=== PATIENT | male | born 2000 | race Caucasian/White ===

== ENCOUNTER 2024-03-20 08:55 | Outpatient (AMB) | payer OTHER, SELFPAY ==
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
[2024-03-20 09:09] VITALS: BP 108/66; PULSE 95; RESP 14; O2SAT 98; BMI 48.8
== END 2024-03-20 10:03 | disposition home or self-care (01) ==
PROVIDERS: Visit Provider Physician Assistant
DX: Z00.00 Encounter for general adult medical examination without abnormal findings (principal); F32.5 Major depressive disorder, single episode, in full remission; E66.01 Morbid (severe) obesity due to excess calories; Z68.42 Body mass index [BMI] 45.0-49.9, adult; F41.1 Generalized anxiety disorder; E04.9 Nontoxic goiter, unspecified; J45.20 Mild intermittent asthma, uncomplicated

== ENCOUNTER → 2024-03-20 08:55 | Outpatient (BNVA) | payer OTHER, SELFPAY | PROVIDERS: Visit Provider Physician Assistant | DX: Z00.00 Encounter for general adult medical examination without abnormal findings (principal); F32.5 Major depressive disorder, single episode, in full remission; F41.1 Generalized anxiety disorder; E66.01 Morbid (severe) obesity due to excess calories; E04.9 Nontoxic goiter, unspecified; J45.20 Mild intermittent asthma, uncomplicated | CPT/HCPCS: 96127; 99385 ==

== ENCOUNTER 2024-03-20 10:10 | Outpatient (REF) | payer OTHER, SELFPAY ==
[2024-03-20 11:36] LABS: MANUAL DIFF FLAG NO
[2024-03-20 11:46] LABS: Basophils Percent Auto 0.3 % (0-2); Eosinophils Absolute Auto 0.2 X10*3/uL (0.0-0.4); Eosinophils Percent Auto 1.5 % (0-4); Hematocrit 38.9 % (42.0-52.0); Hemoglobin 13.1 g/dl (14.0-18.0); Imm Gran Abs Auto 0.04 X10*3/uL (0.00-0.03); Imm Gran Pct Auto 0.3 % (0.0-0.4); Lymphocytes Absolute Auto 3.5 X10*3/uL (1.2-4.9); Mean Corpuscular HGB Conc 33.7 g/dl (31.0-36.0); Mean Corpuscular Hemoglobin 29.9 pg (27.0-33.0); Mean Corpuscular Volume 88.8 fL (80.0-98.0); Mean Platelet Volume 11.5 fL (9.4-12.4); Monocytes Absolute Auto 0.7 X10*3/uL (0.1-1.2); Neutrophils Absolute Auto 8.6 x10*3/uL (2.0-8.3); Neutrophils Percent Auto 65.9 % (45-73); Platelet Count 308 X10*3/uL (160-400); Red Blood Count 4.38 X10*6/uL (4.60-5.80); White Blood Count 13.1 X10*3/uL (4.8-10.8)
[2024-03-20 11:50] LABS: Estimated Average Glucose 100 mg/dL; Hemoglobin A1C 112.9961 umol/L; Hemoglobin A1c % 5.1 % (<6.0); Total Hemoglobin (HGBA1C) 3525.6241 umol/L
[2024-03-20 12:33] LABS: Alanine Aminotransferase 36 U/L (0-40); Albumin Level 4.7 g/dL (3.5-5.0); Alkaline Phosphatase 67 U/L (39-117); Anion Gap 13 (12-20); Aspartate Amino Transferase 21 U/L (5-37); Bilirubin Total 0.6 mg/dL (0.0-1.0); Blood Urea Nitrogen 13 mg/dL (9-16); Calcium 9.5 mg/dL (8.4-10.2); Carbon Dioxide 21 mmol/L (22-29); Chloride 106 mmol/L (96-108); Cholesterol 176 mg/dL (<200); Estimated Glomerular Filt Rate > 60; Glucose Fasting 93 mg/dL (60-99); HDL Cholesterol 34 mg/dL (>40); HIV AB/AG Nonreactive (Nonreactive); HIV Num 1 0.06 S/CO (0.00-0.99); Iron 86 mcg/dL (45-160); LDL Cholesterol Calculated 109 mg/dL (<100); Percent Iron Saturation 27 % (15-50); Potassium 3.6 mmol/L (3.3-5.1); Sodium 136 mmol/L (135-145); Total Iron Binding Capacity 316 mcg/dL (228-428); Total Protein 8.1 g/dL (6.5-8.0); Triglycerides 167 mg/dL (<150); Unsaturated Iron Binding 230 ug/dL; ~HepC Num1 0.07 S/CO (0.00-0.79); ~Hepatitis C Antibody Nonreactive (Nonreactive)
[2024-03-20 12:34] LABS: Syphilis Screen Nonreactive (Nonreactive)
[2024-03-20 12:37] LABS: Ferritin 79 ng/mL (20-250); TSH reflex Free T4 1.78 uIU/mL (0.32-4.0)
[2024-03-20 12:47] LABS: Folate 11.6 ng/mL (> or = 4.0); Vitamin B12 434 pg/mL (200-900)
[2024-03-20 14:53] LABS: CT PCR NOT DETECTED (Not Detect.); NG PCR NOT DETECTED (Not Detect.)
== END 2024-03-20 10:11 | disposition home or self-care (01) ==
LOC: HO.WFDLDS 10:10
PROVIDERS: Physician Assistant; Visit Provider Physician Assistant
DX: F32.5 Major depressive disorder, single episode, in full remission (principal); F41.1 Generalized anxiety disorder; E66.01 Morbid (severe) obesity due to excess calories; Z20.2 Contact with and (suspected) exposure to infections with a predominantly sexual mode of transmission; Z91.011 Allergy to milk products; Z91.012 Allergy to eggs
CPT/HCPCS: 36415; 80053; 80061; 82607; 82728; 82746; 83036; 83540; 84443; 85025; 86003; 86780; 86803; 87389; 87491; 87591

== ENCOUNTER 2024-04-04 09:01 | Outpatient (AMB) | payer OTHER, SELFPAY ==
--- NOTE | 2024-04-04 09:24 | MHC.PC.OV ---
Vital Signs 04/04/24 09:25 Height 5 ft 9.69 in Weight 346 lb 8 oz BMI 50.2 BP 119/75 Blood Pressure Location Rt brachial Position Right Lateral Pulse 102 H Pulse Source Pulse Oximeter Pulse Oximetry (%) 99 Oxygen Delivery Method Room Air Intake Visit Reasons: labs, med discussion Intake Note: Follow up discuss weight loss medication and lab results. 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 Psych: He reports persistent symptoms of major depressive disorder and generalized anxiety disorder, for which he is currently managed by a psychiatrist. The patient is on fluoxetine and trazodone but mentions difficulty in remembering to take them consistently. Massage Operator: He experiences heavy menstrual bleeding described as menorrhagia, with periods being particularly heavy during the initial days and requiring tampon changes every one to two hours. The cycles are described as regular despite their intensity. Last labs that show mild anemia. Going to follow up with Massage Operator. Musculoskeletal: Patient did go to the ER on 03/29 with complaints acute right-sided low back pain. Symptoms started about 4 days prior to ER evaluation. X-ray was obtained and did show mild L4-L5 disc space narrowing, otherwise normal. Patient was provided Flexeril, ketorolac and lidocaine patches. Back is feeling better. States that he would like a refill of the cyclobenzaprine just in case he throws his back out again. General: He has been trying decreased portions, calorie restricting for the last 6 months without big changes in weight. He tries exercising but it is difficult because of his weight. He has tried an over the counter fat burner without improvement. He did meet with a freelance makeup artist. He has tried low carb, my fitness pal, and atkins and intermittent fasting. He states he has only lost minimal weight with these changes and feels like he continues to gain. PFSH Family History (Updated 03/20/24 @ 09:09 by Betzy Jacobson CMA) Mother Diabetes Father Diabetes Other FH: mental illness Substance abuse Social History (Updated 03/20/24 @ 09:12 by Betzy Jacobson CMA) Housing: House Alcohol intake: current Patient Tobacco Use Status: Never used Tobacco e-Cigarette/Vaping Use: Never Used Second Hand Smoke Exposure: No service: No Current occupational status: employed and unemployed Cognitive needs: No Hearing needs: No Vision needs: Yes (glasses) Questionnaire Thrive Questionnaire Date Thrive assessed: 03/13/24 I am a: Patient What is your living situation today?: I have a place to live, but I am worried about losing it in the future Within the past 12 months, did the food you bought not last and you didn't have the money to get more?: I choose not to answer this question Within the past 12 months, did you worry whether your food would run out before you got money to buy more?: I choose not to answer this question Do you have trouble paying for medicines?: I choose not to answer this question Do you have trouble getting transportation to medical appointments?: I choose not to answer this question Do you have trouble paying your heating and electricity bill?: I choose not to answer this question Do you have trouble taking care of your child, family member or friend?: No Do you have trouble with day-to-day activities such as bathing, preparing meals, shopping, managing finances, etc.?: Yes Are you currently unemployed and looking for a job?: Yes Are you interested in more education?: Yes THRIVE Score: 1 CHETNA-7 AMB Questionnaire CHETNA-7 Date CHETNA - 7 assessed: 03/20/24 Source: Developed by Drs. Tony Bennett, Poly Tran, Ernesto Monte and colleagues, with an educational ana from [employer]. Physical exam (Primary Care) Vital Signs: Last Vital Signs Pulse 102 H 04/04/24 09:25 BP 119/75 04/04/24 09:25 Pulse Ox 99 04/04/24 09:25 Oxygen Delivery Method Room Air 04/04/24 09:25 BMI result Body Mass Index 50.2 Tobacco/Smoking Status: Tobacco use Status Tobacco use date assessed 03/20/24 04/04/24 09:29 Patient Tobacco Use Status Never used Tobacco 04/04/24 09:29 e-Cigarette/Vaping Use Never Used 04/04/24 09:29 Thrive Assessment: Date of Thrive Assessment Date Thrive assessed 03/13/24 04/04/24 09:29 Const Orientation/consciousness: patient oriented x3 HENMT Ears: hearing grossly normal bilaterally Neck Thyroid: Thyroid normal Lymphatic: no lymphadenopathy noted Resp Auscultation: clear to auscultation bilaterally Cardio Rate: regular rate Rhythm: regular rhythm Heart sounds: S1 normal heart sound present and S2 normal heart sound present GI Inspection: Yes normal to inspection Palpation (GI): Soft to palpation and Other GI palpation findings present (nontender, no cva tenderness) Auscultation: normoactive bowel sounds Rectal Exam - Male: Yes deferred Skin General skin exam: no rashes or lesions noted Neuro General: patient oriented x3, gait normal and no focal motor deficits Results Reviewed Results Reviewed: Laboratory Tests 03/20/24 10:22 WBC 13.1 H RBC 4.38 L Hgb 13.1 L Hct 38.9 L Plt Count 308 Sodium 136 Potassium 3.6 Chloride 106 Creatinine 0.70 Estimated GFR > 60 Hemoglobin A1c % 5.1 AST 21 ALT 36 LDL Cholesterol, Calc 109 H TSH 1.78 Coding Level of Care Code Est Pt Level 4 (28888) Complex EM visit Add On G2211 Diagnoses Severe obesity (BMI >= 40) E66.01 Low back pain M54.50 Major depression in full remission F32.5 Assessment & Plan Assessment & Plan (1) Severe obesity (BMI >= 40): Code(s): E66.01 - Morbid (severe) obesity due to excess calories Category: Medical Plan: Reviewed last labs. Discussed that patient does have some disc degeneration on x-ray from the ER which is likely related to the obesity. We discussed diet changes, low carb diet and increasing physical activity as tolerated. We will try Wegovy. Discussed risks and benefits and adverse effects of this medication including nausea, vomiting increased risk of pancreatitis. Short term follow up to be reassessed. Patient has trialed and failed other diets and regimens in the past. (2) Low back pain: Code(s): M54.50 - Low back pain, unspecified Category: Medical Plan: Improved. (3) Major depression in full remission: Code(s): F32.5 - Major depressive disorder, single episode, in full remission Category: Medical Plan: Currently well-controlled. Did discuss that Wegovy could worsened feelings of depression. Medications: New semaglutide (weight loss) (Wegovy) 0.25 mg (0.5 mL) subcut QWEEK 2 mL 0RF cyclobenzaprine 10 mg PO TID PRN 30 tabs 0RF muscle spasm
[2024-04-04 09:25] VITALS: BP 119/75; PULSE 102; O2SAT 99; BMI 50.2
== END 2024-04-04 10:19 | disposition home or self-care (01) ==
PROVIDERS: PCP Physician Assistant; Visit Provider Physician Assistant
DX: M54.50 Low back pain, unspecified (principal); E66.01 Morbid (severe) obesity due to excess calories; F32.5 Major depressive disorder, single episode, in full remission; Z68.43 Body mass index [BMI] 50.0-59.9, adult

== ENCOUNTER 2024-04-04 09:09 | Outpatient (REF) | payer OTHER, SELFPAY ==
[2024-04-04 11:25] LABS: MANUAL DIFF FLAG NO
[2024-04-04 11:39] LABS: Basophils Percent Auto 0.2 % (0-2); Eosinophils Absolute Auto 0.2 X10*3/uL (0.0-0.4); Hematocrit 36.6 % (42.0-52.0); Hemoglobin 12.2 g/dl (14.0-18.0); Imm Gran Abs Auto 0.02 X10*3/uL (0.00-0.03); Imm Gran Pct Auto 0.2 % (0.0-0.4); Lymphocytes Absolute Auto 2.4 X10*3/uL (1.2-4.9); Lymphocytes Percent Auto 30.2 % (20-40); Mean Corpuscular HGB Conc 33.3 g/dl (31.0-36.0); Mean Corpuscular Hemoglobin 30.2 pg (27.0-33.0); Mean Corpuscular Volume 90.6 fL (80.0-98.0); Mean Platelet Volume 11.9 fL (9.4-12.4); Monocytes Absolute Auto 0.3 X10*3/uL (0.1-1.2); Monocytes Percent Auto 4.2 % (2-11); Neutrophils Percent Auto 62.2 % (45-73); Platelet Count 284 X10*3/uL (160-400); Red Blood Count 4.04 X10*6/uL (4.60-5.80); Red Cell Distribution Width 12.9 % (11.0-16.0); White Blood Count 8.1 X10*3/uL (4.8-10.8)
== END 2024-04-04 09:10 | disposition home or self-care (01) ==
LOC: HO.WFDLDS 09:09
PROVIDERS: Visit Provider Physician Assistant
DX: E66.01 Morbid (severe) obesity due to excess calories (principal); Z68.43 Body mass index [BMI] 50.0-59.9, adult; F32.5 Major depressive disorder, single episode, in full remission; F41.1 Generalized anxiety disorder; R79.89 Other specified abnormal findings of blood chemistry; Z79.899 Other long term (current) drug therapy
CPT/HCPCS: 36415; 85025; 99212

== ENCOUNTER 2024-04-09 08:16 | Outpatient (REF) | payer OTHER, SELFPAY ==
[2024-04-10 15:28] LABS: Follicle Stimulating Hormone 4.8 mIU/mL (1.4-12.8); Lutenizing Hormone 4.4 mIU/mL (1.5-9.3)
[2024-04-14 13:14] LABS: Testosterone, Free 4.7 pg/mL (35.0-155.0); Testosterone, Total 17 ng/dL (250-1100)
[2024-04-21 03:13] LABS: Estradiol Free 2.71 pg/mL; Estradiol, Ultrasensitive 100 pg/mL (< OR = 29)
== END 2024-04-09 08:17 | disposition home or self-care (01) ==
LOC: HO.WFDLDS 08:16
PROVIDERS: Visit Provider Physician Assistant
DX: Z78.9 Other specified health status (principal)
CPT/HCPCS: 36415; 82670; 82681; 83001; 83002; 84402; 84403

== ENCOUNTER 2024-04-30 13:03 | Outpatient (REF) | payer OTHER, SELFPAY | END 2024-04-30 13:04 | disposition home or self-care (01) | LOC: HO.US 13:03 | PROVIDERS: PCP Physician Assistant; Visit Provider Physician Assistant | DX: E04.9 Nontoxic goiter, unspecified (principal) | CPT/HCPCS: 76536 ==

== ENCOUNTER → 2024-04-30 13:06 | Outpatient (BNV) | payer OTHER, SELFPAY | PROVIDERS: PCP Physician Assistant; Visit Provider Radiology Diagnostic Radiology | DX: E04.9 Nontoxic goiter, unspecified (principal) | CPT/HCPCS: 76536 ==

== ENCOUNTER 2024-07-04 10:10 | Outpatient (AMB) | payer OTHER, SELFPAY ==
--- NOTE | 2024-07-04 10:16 | MHC.PC.OV ---
Vital Signs 07/04/24 10:18 Height 5 ft 9.69 in Weight 360 lb BMI 52.1 BP 128/86 Blood Pressure Location Rt brachial Position Sitting Respiration 16 Pulse 87 Pulse Source Pulse Oximeter Pulse Oximetry (%) 98 Oxygen Delivery Method Room Air Intake Visit Reasons: weight changes Intake Note: Follow up weight loss. Started Zebound three weeks ago. German Instructor Required: No Allergies No Known Allergies Allergy (Verified 07/04/24 10:17) Medication List - Last Reconciled 07/04/24 by Deepthi Castillo PA-C albuterol sulfate 90 mcg/actuation 2 puffs inhalation Q6H PRN cyclobenzaprine 10 mg PO TID PRN epinephrine IM fluoxetine 40 mg PO QAM trazodone 50 mg PO BEDTIME PRN Tobacco use date assessed: 07/04/24 Dental Screening Dental Screen Date: 03/20/24 HPI weight changes HPI Details Patient is a 24-year-old who presents today for a follow up. Recently started on Zepbound for weight loss. States that they were frustrated because when the patient was on Wegovy they were losing weight and then due to insurance issues abruptly stopped the Wegovy and was off of medication for one-month and gained back weight. Patient states that they did not have a good diet and place or a plan in place to come off of the medication. Patient currently has approval through September for zepbound. Patient is aware that this medication may not be authorized for life and we will have to have a plan in place to come off of the medication and should be actively working on diet. Patient has also noticed some asthma symptoms that are worse at night while at home. Has a dust allergy in his following with Allergy and immunology. Has 3 cats in bedroom (hypoallergenic) and has the litter box in the room. They are using albuterol as needed. Patient can not afford [id number] antihistamine as patient is currently unemployed. Currently on fluoxetine 40 mg and trazodone 50 mg at bedtime. Doing well. PFSH Family History (Updated 03/20/24 @ 09:09 by Betzy Jacobson CMA) Mother Diabetes Father Diabetes Other FH: mental illness Substance abuse Social History (Updated 03/20/24 @ 09:12 by Betzy Jacobson CMA) Housing: House Alcohol intake: current Patient Tobacco Use Status: Never used Tobacco e-Cigarette/Vaping Use: Never Used Second Hand Smoke Exposure: No service: No Current occupational status: employed and unemployed Cognitive needs: No Hearing needs: No Vision needs: Yes (glasses) Questionnaire PHQ-9 Over the last 2 weeks, how often have you been bothered by any of the following problems? 1. Little interest or pleasure in doing things: not at all 2. Feeling down, depressed, or hopeless: several days 3. Trouble falling or staying asleep, or sleeping too much: more than half the days 4. Feeling tired or having little energy: more than half the days 5. Poor appetite or overeating: nearly every day 6. Feeling bad about yourself - or that you are a failure or have let yourself or your family down: more than half the days 7. Trouble concentrating on things, such as reading the newspaper or watching television: not at all 8. Moving or speaking so slowly that other people could have noticed. Or the opposite - being so fidgety or restless that you have been moving around a lot more than usual: not at all 9. Thoughts that you would be better off or of hurting yourself in some way: several days Total score: 11 Depression Screening Interpretation: Positive Depression Screening Follow-up: Existing condition, In treatment and Follow-up Visit Requested Depression Screening Done: Yes 70689 - PHQ-9 Billing: Yes Source: Developed by Drs. Tony Bennett, Poly Tran, Ernesto Monte and colleagues, with an educational ana from [employer] Thrive Questionnaire Date Thrive assessed: 06/28/24 I am a: Patient What is your living situation today?: I have a place to live, but I am worried about losing it in the future Within the past 12 months, did the food you bought not last and you didn't have the money to get more?: I choose not to answer this question Within the past 12 months, did you worry whether your food would run out before you got money to buy more?: I choose not to answer this question Do you have trouble paying for medicines?: I choose not to answer this question Do you have trouble getting transportation to medical appointments?: I choose not to answer this question Do you have trouble paying your heating and electricity bill?: No Do you have trouble taking care of your child, family member or friend?: No Do you have trouble with day-to-day activities such as bathing, preparing meals, shopping, managing finances, etc.?: I choose not to answer this question Are you currently unemployed and looking for a job?: Yes Are you interested in more education?: Yes Please select the resources that you would like help with: None Currently or been in a relationship where the following occur: I choose not to answer THRIVE Score: 1 AUDIT C Alcohol Use Questionnaire (AUDIT-C) 1. How often do you have a drink containing alcohol?: Monthly or less 2. How many drinks containing alcohol do you have on a typical day when you are drinking?: 1 or 2 3. How often do you have six or more drinks on one occasion?: Never Total Score: 1 CHETNA-7 AMB Questionnaire CHETNA-7 Date CHETNA - 7 assessed: 03/20/24 Feeling nervous, anxious, or on edge: 1 = Several days Not being able to stop or control worryin = Several days Worrying too much about different things: 1 = Several days Trouble relaxin = Several days Being so restless that it is hard to sit still: 1 = Several days Becoming easily annoyed or irritable: 1 = Several days Feeling afraid as if something awful might happen: 1 = Several days Total CHETNA-7 score (0-4 normal; 5-9 mild; 10-14 moderate; 15-21 severe): 7 Source: Developed by Drs. Tony Bennett, Poly Tran, Ernesto Monte and colleagues, with an educational ana from [employer] CHETNA-7 Assessment Billing CHETNA-7 Assessment Tool: CHETNA-7 Assessment 34042 Physical exam (Primary Care) Vital Signs: Last Vital Signs Pulse 87 07/04/24 10:18 Resp 16 07/04/24 10:18 BP 128/86 07/04/24 10:18 Pulse Ox 98 07/04/24 10:18 Oxygen Delivery Method Room Air 07/04/24 10:18 BMI result Body Mass Index 52.1 Tobacco/Smoking Status: Tobacco use Status Tobacco use date assessed 07/04/24 07/04/24 10:22 Patient Tobacco Use Status Never used Tobacco 07/04/24 10:22 e-Cigarette/Vaping Use Never Used 07/04/24 10:22 PHQ-9: PHQ-9 Score PHQ-9: Total score 11 07/04/24 10:22 Depression Screening Interpretation: Positive Depression Screening Follow-up: Existing condition, In treatment and Follow-up Visit Requested Thrive Assessment: Date of Thrive Assessment Date Thrive assessed 06/28/24 07/04/24 10:22 Currently or been in a relationship where the following occur: I choose not to answer Const Orientation/consciousness: patient oriented x3 HENMT Ears: hearing grossly normal bilaterally Neck Thyroid: Thyroid normal Lymphatic: no lymphadenopathy noted Resp Auscultation: clear to auscultation bilaterally Cardio Rate: regular rate Rhythm: regular rhythm Heart sounds: S1 normal heart sound present and S2 normal heart sound present GI Inspection: Yes normal to inspection Palpation (GI): Soft to palpation and Other GI palpation findings present (nontender, no cva tenderness) Auscultation: normoactive bowel sounds Rectal Exam - Male: Yes deferred Skin General skin exam: no rashes or lesions noted Neuro General: patient oriented x3, gait normal and no focal motor deficits Coding Level of Care Code Est Pt Level 4 (90996) Complex EM visit Add On G2211 Diagnoses Mild intermittent asthma without complication J45.20 Asthma severity: mild Asthma complication type: uncomplicated Severe obesity (BMI >= 40) E66.01 Major depression in full remission F32.5 Additional Codes PHQ-9 - 83104 - PHQ-9 Billing: Yes ([id number]) CHETNA-7 Assessment Billing - CHETNA-7 Assessment Tool: CHETNA-7 Assessment [id number] ([id number]) Assessment & Plan Assessment & Plan (1) Intermittent asthma: Code(s): J45.20 - Mild intermittent asthma, uncomplicated Category: Medical Qualifiers: Asthma severity: mild Asthma complication type: uncomplicated Qualified Code(s): J45.20 - Mild intermittent asthma, uncomplicated Plan: will try singulair (2) Severe obesity (BMI >= 40): Code(s): E66.01 - Morbid (severe) obesity due to excess calories Category: Medical Plan: increase zepbound to 5 mg spent time discussing diet and lifestyle modifications and termite helper solutions to obesity (3) Major depression in full remission: Code(s): F32.5 - Major depressive disorder, single episode, in full remission Category: Medical Plan: stable. Medications: New tirzepatide (weight loss) (Zepbound) 5 mg (0.5 mL) subcut QWEEK 2 mL 2RF montelukast (Singulair) 10 mg PO BEDTIME 30 tabs 3RF
[2024-07-04 10:18] VITALS: BP 128/86; PULSE 87; RESP 16; O2SAT 98; BMI 52.1
== END 2024-07-04 10:42 | disposition home or self-care (01) ==
PROVIDERS: PCP Physician Assistant; Visit Provider Physician Assistant
DX: J45.20 Mild intermittent asthma, uncomplicated (principal); E66.01 Morbid (severe) obesity due to excess calories; F32.5 Major depressive disorder, single episode, in full remission; Z68.43 Body mass index [BMI] 50.0-59.9, adult

== ENCOUNTER → 2024-07-04 10:10 | Outpatient (BNVA) | payer OTHER, SELFPAY | PROVIDERS: PCP Physician Assistant; Visit Provider Physician Assistant | DX: J45.20 Mild intermittent asthma, uncomplicated (principal); E66.01 Morbid (severe) obesity due to excess calories; F32.5 Major depressive disorder, single episode, in full remission | CPT/HCPCS: 96127; 99212 ==

== ENCOUNTER 2024-10-10 09:20 | Outpatient (AMB) | payer OTHER, SELFPAY ==
--- NOTE | 2024-10-10 09:39 | MHC.PC.OV ---
Vital Signs 10/10/24 09:42 Height 5 ft 9.69 in Weight 340 lb BMI 49.2 BP 118/70 Blood Pressure Location Rt brachial Position Sitting Respiration 16 Pulse 80 Pulse Source Pulse Oximeter Temp 98.2 F Temp Source Oral Pulse Oximetry (%) 99 Oxygen Delivery Method Room Air Intake Visit Reasons: medication Intake Note: Medication follow up. Going on plane trip to the in November and is wondering if he should be worried about deep vein thrombosis. Referral to warehouse shipping receiving clerk for [employer]. Advertising Operations Manager Required: No Allergies No Known Allergies Allergy (Verified 10/10/24 09:40) Medication List - Last Reconciled 10/10/24 by Deepthi Castillo PA-C albuterol sulfate 90 mcg/actuation 2 puffs inhalation Q6H PRN cyclobenzaprine 10 mg PO TID PRN epinephrine IM fluoxetine 40 mg PO QAM montelukast (Singulair) 10 mg PO BEDTIME tirzepatide (weight loss) (Zepbound) 12.5 mg (0.5 mL) subcut QWEEK trazodone 50 mg PO BEDTIME PRN Tobacco use date assessed: 07/04/24 Dental Screening Dental Screen Date: 03/20/24 HPI medication HPI Details Patient is a 24-year-old who presents today for a follow up. Recently started on Zepbound for weight loss. Has lost over 20 lb in the last few months being on Zepbound. States that they are trying to eat a lot healthier and increase physical activity. PULM: Has a dust allergy in his following with Allergy and immunology. Has 3 cats in bedroom (hypoallergenic) and has the litter box in the room. They are using albuterol as needed. Would like a spacer. Patient can not afford [id number] antihistamine as patient is currently unemployed. Psych: Currently on fluoxetine 40 mg and trazodone 50 mg at bedtime. Doing well. Would like hormone replacement therapy and is going to look up an warehouse shipping receiving clerk in the area that insurance would cover or [facility] consider [facility]. PFSH Family History (Updated 03/20/24 @ 09:09 by Betzy Jacobson CMA) Mother Diabetes Father Diabetes Other FH: mental illness Substance abuse Social History (Updated 03/20/24 @ 09:12 by Betzy Jacobson CMA) Housing: House Alcohol intake: current Patient Tobacco Use Status: Never used Tobacco e-Cigarette/Vaping Use: Never Used Second Hand Smoke Exposure: No service: No Current occupational status: employed and unemployed Cognitive needs: No Hearing needs: No Vision needs: Yes (glasses) Questionnaire Thrive Questionnaire Date Thrive assessed: 06/28/24 I am a: Patient What is your living situation today?: I have a place to live, but I am worried about losing it in the future Within the past 12 months, did the food you bought not last and you didn't have the money to get more?: I choose not to answer this question Within the past 12 months, did you worry whether your food would run out before you got money to buy more?: I choose not to answer this question Do you have trouble paying for medicines?: I choose not to answer this question Do you have trouble getting transportation to medical appointments?: I choose not to answer this question Do you have trouble paying your heating and electricity bill?: No Do you have trouble taking care of your child, family member or friend?: No Do you have trouble with day-to-day activities such as bathing, preparing meals, shopping, managing finances, etc.?: I choose not to answer this question Are you currently unemployed and looking for a job?: Yes Are you interested in more education?: Yes Please select the resources that you would like help with: None Currently or been in a relationship where the following occur: I choose not to answer THRIVE Score: 1 CHETNA-7 AMB Questionnaire CHETNA-7 Date CHETNA - 7 assessed: 03/20/24 Source: Developed by Drs. Tony Bennett, Poly Tran, Ernesto Monte and colleagues, with an educational ana from [employer]. Physical exam (Primary Care) Vital Signs: Last Vital Signs Temp 98.2 F 10/10/24 09:42 Pulse 80 10/10/24 09:42 Resp 16 10/10/24 09:42 BP 118/70 10/10/24 09:42 Pulse Ox 99 10/10/24 09:42 Oxygen Delivery Method Room Air 10/10/24 09:42 BMI result Body Mass Index 49.2 Tobacco/Smoking Status: Tobacco use Status Tobacco use date assessed 07/04/24 10/10/24 09:46 Patient Tobacco Use Status Never used Tobacco 10/10/24 09:46 e-Cigarette/Vaping Use Never Used 10/10/24 09:46 Thrive Assessment: Date of Thrive Assessment Date Thrive assessed 06/28/24 10/10/24 09:46 Currently or been in a relationship where the following occur: I choose not to answer Const Orientation/consciousness: patient oriented x3 HENMT Ears: hearing grossly normal bilaterally Neck Thyroid: Thyroid normal Lymphatic: no lymphadenopathy noted Resp Auscultation: clear to auscultation bilaterally Cardio Rate: regular rate Rhythm: regular rhythm Heart sounds: S1 normal heart sound present and S2 normal heart sound present GI Inspection: Yes normal to inspection Palpation (GI): Soft to palpation and Other GI palpation findings present (nontender, no cva tenderness) Auscultation: normoactive bowel sounds Rectal Exam - Male: Yes deferred Skin General skin exam: no rashes or lesions noted Neuro General: patient oriented x3, gait normal and no focal motor deficits Coding Level of Care Code Est Pt Level 4 (95185) Complex EM visit Add On G2211 Diagnoses Severe obesity (BMI >= 40) E66.01 Transgender male Z78.9 Mild intermittent asthma without complication J45.20 Asthma severity: mild Asthma complication type: uncomplicated Major depression in full remission F32.5 Assessment & Plan Assessment & Plan (1) Severe obesity (BMI >= 40): Code(s): E66.01 - Morbid (severe) obesity due to excess calories Category: Medical Plan: Continue Zepbound. Doing well. (2) Transgender male: Code(s): Z78.9 - Other specified health status Category: Social Hx Plan: We will let me know regarding an warehouse shipping receiving clerk or animal caregiver. (3) Intermittent asthma: Code(s): J45.20 - Mild intermittent asthma, uncomplicated Category: Medical Qualifiers: Asthma severity: mild Asthma complication type: uncomplicated Qualified Code(s): J45.20 - Mild intermittent asthma, uncomplicated Plan: Spacer ordered (4) Major depression in full remission: Code(s): F32.5 - Major depressive disorder, single episode, in full remission Category: Medical Plan: Stable. Continue current regimen Orders: Orders Hemoglobin A1c Today E66.01 - Morbid (severe) obesity due to excess calories, E78.5 - Hyperlipidemia, unspecified, R73.01 - Impaired fasting glucose Lipid Panel Today E66.01 - Morbid (severe) obesity due to excess calories, E78.5 - Hyperlipidemia, unspecified Complete Blood Count Auto Diff Today E66.01 - Morbid (severe) obesity due to excess calories, E78.5 - Hyperlipidemia, unspecified Comprehensive [place]. Panel Fast Today E66.01 - Morbid (severe) obesity due to excess calories, E78.5 - Hyperlipidemia, unspecified Medications: New inhalational spacing device (Aerochamber MV spacer) Use with albuterol As directed prn 10 ea 0RF
[2024-10-10 09:42] VITALS: BP 118/70; PULSE 80; RESP 16; TEMP 36.8; O2SAT 99; BMI 49.2
== END 2024-10-10 10:21 | disposition home or self-care (01) ==
LOC: HO.HMCFM 09:20
PROVIDERS: PCP Physician Assistant; Visit Provider Physician Assistant
DX: J45.20 Mild intermittent asthma, uncomplicated (principal); E66.01 Morbid (severe) obesity due to excess calories; Z68.42 Body mass index [BMI] 45.0-49.9, adult; Z78.9 Other specified health status; F32.5 Major depressive disorder, single episode, in full remission

== ENCOUNTER → 2024-10-10 09:20 | Outpatient (BNVA) | payer OTHER, SELFPAY | PROVIDERS: PCP Physician Assistant; Visit Provider Physician Assistant | DX: E66.01 Morbid (severe) obesity due to excess calories (principal); J45.20 Mild intermittent asthma, uncomplicated; F32.5 Major depressive disorder, single episode, in full remission; E78.5 Hyperlipidemia, unspecified; R73.01 Impaired fasting glucose; F64.0 Transsexualism; Z68.42 Body mass index [BMI] 45.0-49.9, adult | CPT/HCPCS: 36415; 80053; 80061; 83036; 85025; 99212 ==

== ENCOUNTER 2024-10-10 10:25 | Outpatient (REF) | payer OTHER, SELFPAY ==
[2024-10-10 14:01] LABS: MANUAL DIFF FLAG NO
[2024-10-10 14:22] LABS: Basophils Percent Auto 0.4 % (0-2); Eosinophils Absolute Auto 0.4 X10*3/uL (0.0-0.4); Eosinophils Percent Auto 5.3 % (0-4); Hematocrit 36.4 % (42.0-52.0); Hemoglobin 11.7 g/dl (14.0-18.0); Imm Gran Abs Auto 0.02 X10*3/uL (0.00-0.03); Imm Gran Pct Auto 0.2 % (0.0-0.4); Lymphocytes Absolute Auto 2.3 X10*3/uL (1.2-4.9); Lymphocytes Percent Auto 27.6 % (20-40); Mean Corpuscular HGB Conc 32.1 g/dl (31.0-36.0); Mean Corpuscular Hemoglobin 29.5 pg (27.0-33.0); Mean Corpuscular Volume 91.9 fL (80.0-98.0); Monocytes Absolute Auto 0.4 X10*3/uL (0.1-1.2); Monocytes Percent Auto 5.4 % (2-11); Neutrophils Percent Auto 61.1 % (45-73); Platelet Count 279 X10*3/uL (160-400); Red Blood Count 3.96 X10*6/uL (4.60-5.80); Red Cell Distribution Width 12.9 % (11.0-16.0); White Blood Count 8.2 X10*3/uL (4.8-10.8)
[2024-10-10 14:26] LABS: Estimated Average Glucose 88 mg/dL; Hemoglobin A1c % 4.7 % (<6.0)
[2024-10-10 14:35] LABS: Alanine Aminotransferase 33 U/L (0-40); Albumin Level 4.8 g/dL (3.5-5.0); Alkaline Phosphatase 66 U/L (39-117); Anion Gap 12 (12-20); Aspartate Amino Transferase 30 U/L (5-37); Bilirubin Total 0.4 mg/dL (0.0-1.0); Blood Urea Nitrogen 10 mg/dL (9-16); Calcium 9.1 mg/dL (8.4-10.2); Carbon Dioxide 23 mmol/L (22-29); Chloride 108 mmol/L (96-108); Cholesterol 144 mg/dL (<200); Estimated Glomerular Filt Rate > 60; Glucose Fasting 81 mg/dL (60-99); HDL Cholesterol 30 mg/dL (>40); LDL Cholesterol Calculated 87 mg/dL (<100); Sodium 139 mmol/L (135-145); Total Protein 7.4 g/dL (6.5-8.0); Triglycerides 137 mg/dL (<150)
== END 2024-10-10 10:26 | disposition home or self-care (01) ==
LOC: HO.WFDLDS 10:25
PROVIDERS: Visit Provider Physician Assistant
DX: Z13.89 Encounter for screening for other disorder (principal)
CPT/HCPCS: 36415; 80053; 80061; 83036; 85025